=== PATIENT | male | born 1985 | race Caucasian/White ===

== ENCOUNTER 2018-12-26 21:42 | Emergency (ER) | payer SELFPAY ==
[~2018-12-26] VITALS: Ht 160 cm; Wt 71.2 kg
[2018-12-26 21:44] VITALS: BP 134/67; PULSE 71; RESP 19; Ht 160 cm; Wt 71.2 kg
[2018-12-27] MEDS ORDERED: NAPR-985 PO (00:23)
--- NOTE | 2018-12-27 00:23 | ERD ---
ER Documentation Chief Complaint Chief Complaint HEAD INJ X5WKS AGO; HURTING MORE TODAY; FELL OFF 6FT LADDER; NO ALOC HPI 33-year-old male with no reported past medical history, questionable history of psychiatric disorder who presents with complaint of headache. States he fell off a 6 foot ladder approximately 5 weeks ago. Since that time has been having intermittent frontal type headache. During examination patient also reporting that he feels a friend of his has "put a chip into his head so he can listen to his brain". He otherwise denies vision complaints, nausea, vomiting, abdominal pain, upper or lower extremity paresthesias or numbness, chest pain, shortness of breath, dyspnea. He otherwise is calm and cooperative during evaluation. ROS All systems reviewed and are negative except as per history of present illness. Medications Home Meds Active Scripts Naproxen* (Naprosyn*) 500 Mg Tablet, 500 MG PO BID PRN for PAIN AND/OR INFLAMMATION, #30 TAB Prov:ZAIRA ENRIQUE PA-C 12/27/18 Allergies Allergies: Coded Allergies: No Known Allergy (Unverified , 12/26/18) PMhx/Soc Medical and Surgical Hx: pt denies Medical Hx, pt denies Surgical Hx Hx Alcohol Use: No Hx Substance Use: No Hx Tobacco Use: No Smoking Status: Never smoker FmHx Family History: No diabetes, No coronary disease, No other Physical Exam Vitals Vital Signs Date Temp Pulse Resp B/P (MAP) Pulse Ox O2 O2 Flow FiO2 Time Delivery Rate 12/26/18 97.8 71 19 134/67 99 21:44 (89) Physical Exam I have reviewed the triage vital signs. Const: Well nourished, well developed, appears stated age Eyes: PERRL, no conjunctival injection HENT: NCAT, Neck supple without meningismus CV: RRR, Warm, well-perfused extremities RESP: CTAB, Unlabored respiratory effort GI: soft, non-tender, non-distended, no masses MSK: No gross deformities appreciated Skin: Warm, dry. No rashes Neuro: grossly non focal Psych: Relating paranoid thoughts, calm cooperative Psych: Appropriate mood and affect. Procedures/MDM 33-year-old male with questionable psych history who presents with complaint of headache and paranoid thoughts. I have low suspicion for any acute process given unremarkable exam wanting further emergent care or work-up. Patient does not exhibit any red flag symptoms and his reported injury is remote. Discharge with appropriate pain medications and strict return precautions. DISPOSITION PLAN: We discussed follow up with the patient's primary care doctor within 24 to 48 hours. Patient counseled regarding my diagnostic impression and care plan. Prior to discharge all questions answered. Pt agrees with treatment plan and understands strict return precautions. Precautionary instructions provided including instructions to return to the ER if not improving or for any worsening or changing symptoms or concerns. Disclaimer: Inadvertent spelling and grammatical errors are likely due to EHR/dictation software use and do not reflect on the overall quality of patient care. Also, please note that the electronic time recorded on this note does not necessarily reflect the actual time of the patient encounter. Departure Diagnosis: Primary Impression: Headache Condition: Stable Patient Instructions: Self-Care for Headaches Referrals: [facility] YOU HAVE RECEIVED A MEDICAL SCREENING EXAM AND THE RESULTS INDICATE THAT YOU DO NOT HAVE A CONDITION THAT REQUIRES URGENT TREATMENT IN THE EMERGENCY DEPARTMENT. FURTHER EVALUATION AND TREATMENT OF YOUR CONDITION CAN WAIT UNTIL YOU ARE SEEN IN YOUR DOCTORS OFFICE WITHIN THE NEXT 1-2 DAYS. IT IS YOUR RESPONSIBILITY TO MA KE AN APPOINTMENT FOR FOLOW-UP CARE. IF YOU HAVE A PRIMARY DOCTOR --you should call your primary doctor and schedule an appointment IF YOU DO NOT HAVE A PRIMARY DOCTOR YOU CAN CALL OUR PHYSICIAN REFERRAL HOTLINE AT IF YOU CAN NOT AFFORD TO SEE A PHYSICIAN YOU CAN CHOSE FROM THE FOLLOWING [facility] [address] [facility]. [facility] [address] [facility] [facility] [address] [facility] [address] [facility]. [facility] [address] [facility]. [facility]. [address] Additional Instructions: Call your primary care doctor TOMORROW for an appointment during the next 2-3 days.See the doctor sooner or return here if your condition worsens before your appointment time. ZAIRA ENRIQUE PA-C Dec 27, 2018 00:23
== END 2018-12-27 00:29 | disposition home or self-care (01) ==
LOC: FTE 21:42
DX: R51 Headache (principal)
CPT/HCPCS: 99282